=== PATIENT | female | born 1990 | race Caucasian/White ===

== ENCOUNTER 2016-03-05 23:16 | Emergency (ER) | payer BC ==
[~2016-03-05] VITALS: Ht 160 cm; Wt 64.1 kg
[~2016-03-05 23:16] MED LIST: CEPHALEXIN500 M1 PO; MULTI VITAMINS1 TAB PO; PYRIDIUM200 M1 PO; TRI-SPRINTEC 281 TAB PO
[2016-03-05 23:24] VITALS: TEMP 98.2
[2016-03-05] MEDS ORDERED: DIFLUCAN 100MG100 MG PO (23:29)
[2016-03-05] MEDS ORDERED: MOBIC15 MG PO (23:29)
[2016-03-06 00:01] LABS: PH 6 (5-8); SQUAMOUS EPITHELIAL 0-2 /hpf; URINE APPEARANCE Clear; URINE BACTERIA Rare /hpf; URINE BILIRUBIN Negative (NEGATIVE); URINE BLOOD 2+ (NEGATIVE); URINE COLOR Amber; URINE GLUCOSE Negative (NEGATIVE); URINE KETONE Negative (NEGATIVE); URINE UROBILINOGEN >=4.0 mg/dL (NEGATIVE); URINE WBC >50 /hpf
[2016-03-06] MEDS ORDERED: CIPRO 500MG TA500 MG PO (00:15)
[2016-03-06 00:32] VITALS: BP 121/84; PULSE 76
== END 2016-03-06 00:31 | disposition home or self-care (01) ==
LOC: COL.ER 23:16
PROVIDERS: Emergency Medicine
DX: N39.0 Urinary tract infection, site not specified (principal); B96.20 Unspecified Escherichia coli [E. coli] as the cause of diseases classified elsewhere

== ENCOUNTER → 2016-03-31 | Outpatient (CLI) | payer BC ==
[~2016-03-31] MED LIST changes: +CIPRO 500MG TA500 MG PO; +DIFLUCAN 100MG100 MG PO; +FLEXERIL 1010 MG/TAB PO; +IBU600 MG PO; +MOBIC15 MG PO
== END ==
LOC: COL.RAD 10:17
DX: R10.31 Right lower quadrant pain (principal)

== ENCOUNTER → 2016-06-06 | Outpatient (CLI) | payer BC | LOC: COL.RAD 13:49 | DX: R10.30 Lower abdominal pain, unspecified (principal) | CPT/HCPCS: A9585 ==

== ENCOUNTER 2016-07-03 11:48 | Emergency (ER) | payer BC ==
[~2016-07-03] VITALS: Ht 160 cm; Wt 63.6 kg
[~2016-07-03 11:48] MED LIST changes: -FLEXERIL 1010 MG/TAB PO; -IBU600 MG PO
[2016-07-03 11:49] VITALS: TEMP 98.3
[2016-07-03 13:13] LABS: BASO % 0.8 % (0.0-2.0); EOS # 0.1 (0.0-0.7); EOS % 1.5 % (0-4.0); GRAN # 3.2 (1.4-6.5); GRAN % 60.4 % (42.2-75.2); HEMATOCRIT 37.1 % (37.0-47.0); HEMOGLOBIN 12.2 g/dl (12.5-16.0); LYMPH # 1.4 (1.2-3.4); LYMPH % 26.6 % (20.0-51.0); MEAN CELL VOLUME 87 fl (80.0-100.0); MEAN CORPUSCULAR HEMOGLOBIN 29 pg (27.0-31.0); MEAN CORPUSCULAR HGB CONC 33 g/dl (33.0-37.0); MEAN PLATELET VOLUME 10.5 fl (7.4-10.4); MONO # 0.6 (0.1-0.6); MONO % 10.5 % (1.7-9.3); PLATELET COUNT 265 K/mm3 (130-400); RED BLOOD COUNT 4.28 M/mm3 (4.10-5.30); REDCELL DISTRIBUTION WIDTH-CV 11.9 % (11.5-14.5); WHITE BLOOD COUNT 5.2 K/mm3 (4.8-10.8)
[2016-07-03 14:12] LABS: ERYTHROCYTE SEDIMENTATION RATE 5 mm/hr (0-20)
[2016-07-03] MEDS ORDERED: IBU600 MG PO (14:13)
[2016-07-03] MEDS ORDERED: FLEXERIL 1010 MG/TAB PO (14:13)
[2016-07-03 14:28] VITALS: BP 127/75; PULSE 62
== END 2016-07-03 14:35 | disposition home or self-care (01) ==
LOC: COL.ER 11:48
PROVIDERS: Physician Assistant
DX: G89.18 Other acute postprocedural pain (principal); M25.551 Pain in right hip; Z98.890 Other specified postprocedural states
CPT/HCPCS: J1170; J1885; J2405

== ENCOUNTER → 2016-08-06 | Outpatient (CLI) | payer BC ==
[~2016-08-06] MED LIST changes: +FLEXERIL 1010 MG/TAB PO; +IBU600 MG PO
== END ==
LOC: MHCPAIN 09:33
DX: M47.817 Spondylosis without myelopathy or radiculopathy, lumbosacral region (principal); M54.16 Radiculopathy, lumbar region; M53.3 Sacrococcygeal disorders, not elsewhere classified
CPT/HCPCS: G0463

== ENCOUNTER 2018-11-09 06:28 | Observation (INO) | payer OTHER ==
[~2018-11-09] VITALS: Ht 160 cm; Wt 68.2 kg
[2018-11-09 07:15] LABS: BASO # 0.1 (0.0-0.2); BASO % 0.9 % (0.0-2.0); EOS # 0.2 (0.0-0.7); GRAN # 3.1 (1.4-6.5); GRAN % 52.5 % (42.2-75.2); HEMATOCRIT 39.2 % (37.0-47.0); HEMOGLOBIN 13.1 g/dl (12.5-16.0); LYMPH # 1.9 (1.2-3.4); LYMPH % 32.6 % (20.0-51.0); MEAN CELL VOLUME 87 fl (80.0-100.0); MEAN CORPUSCULAR HEMOGLOBIN 29 pg (27.0-31.0); MEAN CORPUSCULAR HGB CONC 33 g/dl (33.0-37.0); MEAN PLATELET VOLUME 10.1 fl (7.4-10.4); MONO # 0.6 (0.1-0.6); MONO % 9.8 % (1.7-9.3); PLATELET COUNT 384 K/mm3 (130-400); RED BLOOD COUNT 4.51 M/mm3 (4.10-5.30); REDCELL DISTRIBUTION WIDTH-CV 11.9 % (11.5-14.5)
[2018-11-09] MEDS ORDERED: CYMBALTA 30MG30 MG PO (07:24)
[2018-11-09 07:27] LABS: ALBUMIN 4.3 gm/dL (3.5-5.0); BILIRUBIN,TOTAL 0.4 mg/dL (0.0-1.0); C-REACTIVE PROTEIN 0.7 mg/dL (0.0-0.9); CALCIUM 9.1 mg/dL (8.4-10.2); CREATININE, serum 0.61 (0.52-1.25); POTASSIUM 4.2 mmol/L (3.4-5.0); TOTAL PROTEIN 7.6 gm/dL (6.4-8.2)
[2018-11-09 08:36] LABS: COLLECTION METHOD CLEAN CATCH
[2018-11-09 08:42] LABS: MUCOUS Present /lpf; PH 9 (5-8); SQUAMOUS EPITHELIAL 0-2 /hpf; URINE APPEARANCE Clear; URINE BACTERIA None Seen /hpf; URINE BILIRUBIN Negative (NEGATIVE); URINE BLOOD Negative (NEGATIVE); URINE COLOR Straw; URINE GLUCOSE Negative (NEGATIVE); URINE KETONE Negative (NEGATIVE); URINE LEUKOCYTE ESTERASE Negative (NEGATIVE); URINE NITRATE Negative (NEGATIVE); URINE PROTEIN(semi-quant) Negative (NEGATIVE); URINE RBC None Seen /hpf; URINE UROBILINOGEN Negative (NEGATIVE)
[2018-11-09] MEDS ORDERED: PERCOCET 325 MG1 TA2 PO (12:00)
[2018-11-09] MEDS ORDERED: MOTRIN 800800 MG/TAB PO (12:00)
[2018-11-09 12:40] VITALS: BP 128/74; PULSE 85
--- NOTE | 2018-11-09 12:40 | NUR ---
1240- Pt to room 221 via bed, Macy RN with Pt. VSS, no vaginal bleeding noted on peripad, Bandaid to left lower incision site, dark red, dried blood noted, no active bleeding at this time. Pt nauseous from moving in bed down hallway, dry heaves a few times, no vomiting. Will check orders.
[2018-11-09 13:00] VITALS: BP 115/71; PULSE 92
[2018-11-09 13:15] VITALS: BP 131/79; PULSE 100
[2018-11-09 13:30] VITALS: BP 131/78; PULSE 79
[2018-11-09 15:00] VITALS: BP 95/53; PULSE 119
--- NOTE | 2018-11-09 16:05 | NUR ---
1605- Pt assisted to bathroom, Pt pale in color, complains of nausea, emesis basin and cold wash cloth to back to neck. No emesis noted. Pt states unable to void. Shower on, cold water, privacy given but RN remains in Pt room. After approximately 10mins Pt calls out for RN, Pt diaphoretic, and very nauseous. Pt assisted back to bed, small emesis noted. Pt verbalizes feeling better after emesis. VSS. Pt states she voided small amount, no urine noted in hat and unable to see urine in toilet. 1630- Dr Mcdaniel updated on Pt status, see physician notification.
[2018-11-09 16:20] VITALS: BP 110/56; PULSE 63; TEMP 97.2
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
--- NOTE | 2018-11-09 18:40 | NUR ---
RONDO WARNING LIFTED. PT REQUESTING TO DISCHARGE AT THIS TIME, DISCHARGE INSTRUCTIONS REVIEWED WITH PT AND SPOUSE BY GERSON DIAZ. PT ESCORTED FROM UNIT VIA WHEELCHAIR BY Bill CURRAN SPL[employer]K CONSULTANT WITH SPOUSE.
== END 2018-11-09 18:40 | disposition home or self-care (01) ==
LOC: COL.ER 06:28 → INPTSU 10:07 → OB 12:40
PROVIDERS: ADMIT Emergency Medicine
DX: N83.292 Other ovarian cyst, left side (principal); N83.512 Torsion of left ovary and ovarian pedicle; N83.8 Other noninflammatory disorders of ovary, fallopian tube and broad ligament; G89.29 Other chronic pain; G43.909 Migraine, unspecified, not intractable, without status migrainosus; Z79.891 Long term (current) use of opiate analgesic; Z79.899 Other long term (current) drug therapy; Z84.89 Family history of other specified conditions
CPT/HCPCS: J1100; J1885; J2270; J2405; J2550; J2704; J2710; J3010; J7030; J7120

== ENCOUNTER 2021-03-11 00:33 | Emergency (ER) | payer BC ==
[~2021-03-11] VITALS: Ht 160 cm; Wt 73.6 kg
[~2021-03-11 00:33] MED LIST changes: +CYMBALTA 30MG30 MG PO; +MOTRIN 800800 MG/TAB PO; +PERCOCET 325 MG1 TA2 PO
[2021-03-11 00:41] VITALS: TEMP 98.5
[2021-03-11 01:23] LABS: BASO % 0.5 % (0.0-2.0); EOS % 0.5 % (0.0-4.0); GRAN # 3.3 K/mm3 (1.4-6.5); GRAN % 81.7 % (42.2-75.2); HEMOGLOBIN 11.6 g/dl (12.5-16.0); LYMPH # 0.2 K/mm3 (1.2-3.4); MEAN CELL VOLUME 86 fl (80.0-100.0); MEAN CORPUSCULAR HEMOGLOBIN 29 pg (27-31); MEAN CORPUSCULAR HGB CONC 33 g/dl (33.0-37.0); MEAN PLATELET VOLUME 10.2 fl (7.4-10.4); MONO # 0.5 K/mm3 (0.1-0.6); PLATELET COUNT 265 K/mm3 (130-400); RED BLOOD COUNT 4.07 M/mm3 (4.10-5.30)
[2021-03-11 01:24] LABS: HEMATOCRIT 34.9 % (37.0-47.0)
[2021-03-11 01:39] LABS: ALBUMIN 3.6 gm/dL (3.5-5.0); BILIRUBIN,TOTAL 0.2 mg/dL (0.2-1.2); C-REACTIVE PROTEIN 1.73 mg/dL (0.00-0.50); CALCIUM 8.6 mg/dL (8.4-10.2); CREATININE, serum 0.77 mg/dL (0.57-1.11); POTASSIUM 3.5 mmol/L (3.5-4.5); TOTAL PROTEIN 6.9 gm/dL (6.2-8.1)
[2021-03-11 01:47] LABS: COLLECTION METHOD CLEAN CATCH
[2021-03-11 01:54] LABS: MUCOUS Present (NOT PRESENT); PH 5 (5-8); URINE APPEARANCE Hazy (CLEAR/HAZY); URINE BACTERIA Rare /hpf (NONE SEEN); URINE BILIRUBIN Negative (NEGATIVE); URINE BLOOD Negative (NEGATIVE); URINE COLOR Yellow (YELLOW); URINE GLUCOSE Negative (NEGATIVE); URINE KETONE 1+ (NEGATIVE); URINE LEUKOCYTE ESTERASE Negative (NEGATIVE); URINE NITRATE Negative (NEGATIVE); URINE PROTEIN(semi-quant) Negative (NEGATIVE); URINE RBC 0-2 /hpf (0-2); URINE UROBILINOGEN Negative (NEGATIVE)
[2021-03-11] MEDS ORDERED: ZOFRAN ODT4 MG PO (02:14)
[2021-03-11 02:35] VITALS: BP 138/89; PULSE 76
== END 2021-03-11 02:35 | disposition home or self-care (01) ==
LOC: COL.ER 00:33
PROVIDERS: Nurse Practitioner
DX: U07.1 COVID-19 (principal)
CPT/HCPCS: J2405; J7030

== ENCOUNTER → 2021-12-06 | Outpatient (CLI) | payer BC ==
[~2021-12-06] MED LIST changes: +ZOFRAN ODT4 MG PO
== END ==
LOC: COL.RAD 09:00
DX: N83.209 Unspecified ovarian cyst, unspecified side (principal); Z90.721 Acquired absence of ovaries, unilateral; R10.31 Right lower quadrant pain

== ENCOUNTER 2022-03-24 07:23 | Emergency (ER) | payer BC ==
[~2022-03-24] VITALS: Ht 160 cm; Wt 75.0 kg
[2022-03-24 08:03] LABS: BASO # 0.1 K/mm3 (0.0-0.2); EOS # 0.1 K/mm3 (0.0-0.7); EOS % 2.1 % (0.0-4.0); GRAN % 52.5 % (42.2-75.2); HEMATOCRIT 39.9 % (37.0-47.0); HEMOGLOBIN 13.1 g/dl (12.5-16.0); LYMPH # 2.1 K/mm3 (1.2-3.4); LYMPH % 35.9 % (20.0-51.0); MEAN CELL VOLUME 86 fl (80.0-100.0); MEAN CORPUSCULAR HEMOGLOBIN 28 pg (27-31); MEAN CORPUSCULAR HGB CONC 33 g/dl (33.0-37.0); MEAN PLATELET VOLUME 10.4 fl (7.4-10.4); MONO # 0.5 K/mm3 (0.1-0.6); MONO % 8.3 % (1.7-9.3); PLATELET COUNT 383 K/mm3 (130-400); RED BLOOD COUNT 4.62 M/mm3 (4.10-5.30); REDCELL DISTRIBUTION WIDTH-CV 11.9 % (11.5-14.5)
[2022-03-24 08:44] LABS: ALBUMIN 3.7 gm/dL (3.5-5.0); BILIRUBIN,TOTAL 0.3 mg/dL (0.2-1.2); CALCIUM 9.4 mg/dL (8.4-10.2); CREATININE, serum 0.86 mg/dL (0.57-1.11); POTASSIUM 3.9 mmol/L (3.5-4.5); TOTAL PROTEIN 7.4 gm/dL (6.2-8.1)
[2022-03-24 09:56] LABS: COLLECTION METHOD CLEAN CATCH
[2022-03-24 10:10] LABS: URINE APPEARANCE Clear (CLEAR/HAZY); URINE BLOOD Negative (NEGATIVE); URINE COLOR Colorless (YELLOW); URINE GLUCOSE Negative (NEGATIVE); URINE KETONE Negative (NEGATIVE); URINE NITRATE Negative (NEGATIVE); URINE PROTEIN(semi-quant) Negative (NEGATIVE); URINE UROBILINOGEN 0.2 E.U/dL (0.2-1.0)
[2022-03-24 10:12] LABS: SQUAMOUS EPITHELIAL 0-2 /hpf (0-10); URINE BACTERIA Rare /hpf (NONE SEEN); URINE RBC 0-2 /hpf (0-2)
[2022-03-24 13:20] VITALS: BP 132/89; PULSE 78; TEMP 98.5
== END 2022-03-24 13:15 | disposition home or self-care (01) ==
LOC: COL.ER 07:23
PROVIDERS: Emergency Medicine
DX: R10.31 Right lower quadrant pain (principal); R10.2 Pelvic and perineal pain; G89.29 Other chronic pain; Z28.310 Unvaccinated for COVID-19
CPT/HCPCS: J1170; J1885; J2270; J2405; Q9967